=== PATIENT | male | born 1990 | race Caucasian/White ===

== ENCOUNTER 2018-01-02 09:15 | Emergency (ER) | payer MEDICAID ==
[~2018-01-02] VITALS: Ht 167.6 cm; Wt 84.0 kg
[2018-01-02 09:24] VITALS: BP 141/63
== END 2018-01-02 18:03 | disposition left against medical advice (07) ==
LOC: ER 09:43
DX: R07.9 Chest pain, unspecified (principal); R11.2 Nausea with vomiting, unspecified; R42 Dizziness and giddiness; Z53.21 Procedure and treatment not carried out due to patient leaving prior to being seen by health care provider
CPT/HCPCS: 93005

== ENCOUNTER 2019-05-24 12:26 | Emergency (ER) | payer BC, MEDICAID ==
[~2019-05-24] VITALS: Ht 167.6 cm; Wt 86.0 kg
[2019-05-24 12:32] VITALS: BP 157/51
== END 2019-05-24 14:09 | disposition left against medical advice (07) ==
LOC: ER 12:26
DX: Z53.21 Procedure and treatment not carried out due to patient leaving prior to being seen by health care provider (principal)

== ENCOUNTER 2023-02-10 13:19 | Emergency (ER) | payer BC, MEDICAID ==
[~2023-02-10] VITALS: Ht 165.1 cm; Wt 81.6 kg
[2023-02-10] MEDS ORDERED: DIPH25CA83 PO (13:40)
[2023-02-10] MEDS ORDERED: P50 MT (13:40)
[2023-02-10] MEDS ORDERED: DIPHENHYDRAMINE 50MG CAPSULE PO ONE (13:45)
[2023-02-10 14:26] VITALS: BP 132/78
== END 2023-02-10 14:27 | disposition home or self-care (01) ==
LOC: ER 13:19
DX: T78.1XXA Other adverse food reactions, not elsewhere classified, initial encounter (principal); X58.XXXA Exposure to other specified factors, initial encounter; L29.9 Pruritus, unspecified; F12.10 Cannabis abuse, uncomplicated
CPT/HCPCS: 99283; Q0163

== ENCOUNTER 2024-03-19 07:52 | Emergency (ER) | payer BC ==
[~2024-03-19] VITALS: Ht 165.1 cm; Wt 86.2 kg
[~2024-03-19 07:52] MED LIST: DIPH25CA83 PO; P50 MT
[2024-03-19 08:07] VITALS: TEMP 98.4; O2SAT 100
[2024-03-19 08:41] LABS: HEMATOCRIT 42.9 % (42.0-52.0); HEMOGLOBIN 14.5 g/dL (14.0-18.0); MEAN CORPUSCULAR HGB CONC 33.8 g/dL (31.0-37.0); MEAN CORPUSCULAR VOLUME 94.8 fL (80.0-94.0); PLATELET 379 x1000/uL (130-400); RED BLOOD CELL COUNT 4.53 mill/uL (4.7-6.1); RED CELL DISTRIBUTION WIDTH 15.1 % (11.6-14.6)
[2024-03-19 08:55] LABS: CARBON DIOXIDE 24 mEq/L (21-32); CHLORIDE 106 mEq/L (98-107); POTASSIUM 3.8 mEq/L (3.5-5.1); SODIUM 139 mEq/L (136-145)
[2024-03-19 08:56] LABS: CALCIUM 9.2 mg/dL (8.7-10.4)
[2024-03-19 09:00] LABS: CREATININE 0.9 mg/dL (0.6-1.3); GLUCOSE 108 mg/dL (70-105)
[2024-03-19 09:01] LABS: UREA NITROGEN BLOOD 16 mg/dL (9-23)
[2024-03-19 09:02] LABS: ALANINE AMINOTRANSFERASE 17 IU/L (10-49); ALBUMIN 3.8 g/dL (3.2-4.8)
[2024-03-19 09:03] LABS: ASPARTATE AMINOTRANSFERASE 13 IU/L (<34); BILIRUBIN DIRECT 0.1 mg/dL (<=3.0); BILIRUBIN TOTAL 0.4 mg/dL (0.1-1.0)
[2024-03-19 09:08] LABS: TROPONIN I HIGH SENSITIVITY < 4 ng/L (3.0-53)
[2024-03-19] MEDS ORDERED: IBUP-2029 MT (10:51)
[2024-03-19 11:00] VITALS: BP 120/63; PULSE 89; RESP 16
[2024-03-19] MEDS: IBUPROFEN 600MG TABLET PO ONE (11:00)
== END 2024-03-19 10:58 | disposition home or self-care (01) ==
LOC: ER 07:52
DX: R07.89 Other chest pain (principal); R10.9 Unspecified abdominal pain; F12.90 Cannabis use, unspecified, uncomplicated; Z91.013 Allergy to seafood; Z91.040 Latex allergy status
CPT/HCPCS: 36415; 71045; 76705; 80048; 80076; 84484; 85027; 93005; 99285